=== PATIENT | male | born 1990 | race African-American/Black ===

== ENCOUNTER 2023-12-23 00:47 | Emergency (ER) | payer OTHER, MEDICAID ==
[~2023-12-23] VITALS: Ht 182.9 cm; Wt 90.0 kg
[2023-12-23 00:49] VITALS: BP 137/87; PULSE 80; RESP 16; TEMP 97.9; O2SAT 99
== END 2023-12-23 03:40 | disposition left against medical advice (07) ==
LOC: ER 00:47
DX: R10.9 Unspecified abdominal pain (principal); Z53.21 Procedure and treatment not carried out due to patient leaving prior to being seen by health care provider
CPT/HCPCS: 99281